=== PATIENT | female | born 1980 | race Caucasian/White ===

== ENCOUNTER 2024-12-24 19:10 | Emergency (ER) | payer OTHER ==
[~2024-12-24] VITALS: Ht 172.7 cm; Wt 78.9 kg
[2024-12-24] MEDS ORDERED: NORTRIPTYLINE H10 MG PO (20:15)
[2024-12-24] MEDS ORDERED: BUDESONIDE EC3 MG PO (20:15)
[2024-12-24] MEDS ORDERED: BUPROPION XL150 MG PO (20:16)
[2024-12-24] MEDS ORDERED: HYDROCODONE/APAP 10/325 1 TAB PO ONE (20:45)
[2024-12-24] MEDS ORDERED: ONDANSETRON 4 MG TAB ODT SL ONE (20:45)
[2024-12-24] MEDS ORDERED: DIPHTH,PERTUSS(ACELL),TET VAC 0.5 ML SYRINGE IM ONE (20:45)
[2024-12-24] MEDS ORDERED: HYDROCODONE BIT/ACETAMINOPHEN 5/325 MG 1 TAB HOME.PACK PO ONE (20:45)
[2024-12-24] MEDS ORDERED: HYDROCODON-ACE1 EA10 PO (20:49)
[2024-12-24] MEDS ORDERED: ONDANSETRON ODT4 MG PO (20:49)
[2024-12-24 21:40] VITALS: BP 133/87
== END 2024-12-24 21:40 | disposition home or self-care (01) ==
LOC: ED 19:10
DX: T22.212A Burn of second degree of left forearm, initial encounter (principal); Z79.899 Other long term (current) drug therapy; X10.2XXA Contact with fats and cooking oils, initial encounter; Y93.G3 Activity, cooking and baking
CPT/HCPCS: 90471; 90715; 99283-25; A9270